=== PATIENT | male | born 1950 | race Caucasian/White ===

== ENCOUNTER 2018-02-23 09:35 | Emergency (ER) | payer MEDICARE ==
[~2018-02-23] VITALS: Ht 180.3 cm; Wt 109.5 kg
[2018-02-23] MEDS ORDERED: LORazepam 1MG TABLET PO ONE (10:30)
[2018-02-23 10:32] LABS: BASOPHILS # (AUTO) 0.02 x10^3/uL (0-0.1); BASOPHILS % (AUTO) 0 % (0-1); EOSINOPHILS # (AUTO) 0.13 x10^3/uL (0-0.4); EOSINOPHILS % (AUTO) 2 % (1-7); LYMPHOCYTES # (AUTO) 1.25 x10^3/uL (1-3.4); LYMPHOCYTES % (AUTO) 18 % (22-44); MD NO; MEAN CORPUSCULAR HEMOGLOBIN 29.7 pg (27.5-34.5); MEAN CORPUSCULAR HGB CONC 33.4 g/dL (33.2-36.2); MEAN CORPUSCULAR VOLUME 88.9 fL (81-97); MEAN PLATELET VOLUME 6.4 fL (7.4-10.4); MONOCYTES # (AUTO) 0.81 x10^3/uL (0.2-0.8); MONOCYTES % (AUTO) 11 % (2-9); NEUTROPHILS # (AUTO) 4.89 x10^3/uL (1.8-6.8); NEUTROPHILS % (AUTO) 69 % (42-75); PLATELET COUNT 201 x10^3/uL (130-400); RED BLOOD COUNT 5.53 x10^6/uL (4.38-5.82)
[2018-02-23 10:39] LABS: CALCIUM 9.7 mg/dL (8.5-10.1); CHLORIDE 110 mmol/L (98-107)
[2018-02-23 10:43] LABS: ALANINE AMINOTRANSFERASE 25 U/L (12-78); ANION GAP 8 mmol/L (5-15); CREATININE 1.18 mg/dL (0.7-1.3)
[2018-02-23 10:47] LABS: ALKALINE PHOSPHATASE 84 U/L (45-117); BILIRUBIN,TOTAL 0.6 mg/dL (0.2-1.0); TROPONIN I < 0.015 ng/mL (0.000-0.045)
[2018-02-23] MEDS ORDERED: OMNIPAQUE 350 MG/ML, 100ML BOTTLE ONE (12:10)
[2018-02-23] MEDS ORDERED: METO25TA35 PO (12:27)
[2018-02-23] MEDS ORDERED: ENAL10TA PO (12:27)
[2018-02-23] MEDS ORDERED: AMOX-291 PO (12:27)
[2018-02-23] MEDS ORDERED: FAMO20TA37 PO (12:27)
[2018-02-23] MEDS ORDERED: VENL75TA PO (12:27)
[2018-02-23] MEDS ORDERED: ATOR40TA78 PO (12:27)
[2018-02-23] MEDS ORDERED: IBUP-1223 PO (12:27)
[2018-02-23] MEDS ORDERED: HYDR-3240 PO (12:27)
[2018-02-23] MEDS ORDERED: LORazepam 1MG TABLET ONE (13:25)
[2018-02-23 14:40] VITALS: BP 168/86
== END 2018-02-23 14:44 | disposition home or self-care (01) ==
LOC: ED 11:53
DX: F41.1 Generalized anxiety disorder (principal); I10 Essential (primary) hypertension; J44.9 Chronic obstructive pulmonary disease, unspecified; Z72.9 Problem related to lifestyle, unspecified
CPT/HCPCS: 36415; 71275; 74022; 80053; 83880; 84484; 85025; 85379; 93005; 99284; Q9967